=== PATIENT | female | born 1950 | race Caucasian/White ===

== ENCOUNTER 2020-10-10 17:52 | Emergency (ER) | payer MEDICARE, SELFPAY ==
--- NOTE | ~2020-10-10 | XR_ITS ---
EXAMINATION: XR chest 2V DATE: 10/10/2020 18:44 INDICATION: Shortness of breath and cough. TECHNIQUE: Frontal and lateral views of the chest were obtained. COMPARISON: None. FINDINGS: There is mild atelectasis in the lower lung zones. No pleural effusion or pneumothorax. The heart size is normal. There is a compression fracture of T12, likely chronic. IMPRESSION: 1. Mild atelectasis in the lower lung zones. Reviewed, dictated and finalized at location A. [employer]
[2020-10-10 18:10] VITALS: BP 224/98; PULSE 98; RESP 20; TEMP 36.7; O2SAT 100
--- NOTE | 2020-10-10 18:38 | ED.GENADULT ---
HPI - General Adult General Chief complaint: Upper Respiratory Infection Stated complaint: SOB sore throat and some cough Time Seen by Provider: 10/10/20 18:39 Source: patient and RN notes reviewed Mode of arrival: ambulatory Limitations: no limitations History of Present Illness HPI narrative: 69-year-old female presents with complaints of upper respiratory infection symptoms, scratchy throat, cough, and intermittent dyspnea with activity for the past 2 days. Amrita reports she was outside shoveling snow on Saturday and symptoms started later that day. No treatment. Dry cough without chest congestion. Rhinorrhea and nasal congestion. Exacerbating factors consist of activity. No high fevers. Intermittent chills and sweats. No nausea, vomiting, and abdominal pain. Denies chest pain, coughing up blood, jaw pain, dental pain, facial pain, foreign body sensation, and rash. Denies numbness or tingling in the extremities, dizziness, headache, blurred vision, or other vision disturbance. Denies rapid heart beat, lightheadedness, and alter mental status. The patient reports she have not been diagnosed with COVID-19. The patient reports she is not waiting for the results of a COVID-19 lab test. The patient reports she do not have weakness, myalgia, or fatigue. The patient reports she do not have a worsening cough. Denies chest pain. The patient reports she do not have any loss of smell or taste or diarrhea. Denies recent traveling. Denies concerns for COVID-19 or exposures been home with limited outdoor exposure except for essential household needs and return home. At this time, patient is not suspected of having COVID-19. Some parts of this dictation were generated by voice recognition software and may contain typographical and/or grammatical inaccuracies. Related Data Home Medications Medication Instructions Recorded Confirmed sertraline 50 mg PO DAILY 10/10/20 10/10/20 Allergies Allergy/AdvReac Type Severity Reaction Status Date / Time Sulfa (Sulfonamide AdvReac Mild Abdominal Verified 10/10/20 18:29 Antibiotics) Pain Review of Systems Review of Systems: Narrative: CONSTITUTIONAL: Denies of fever. Complains of intermittent chills, sweats. EYES: Denies visual changes, redness, discharge. ENT: Complains of rhinorrhea, congestion, scratchy throat. Denies otalgia. CARDIOVASCULAR: Denies chest pain, palpitations, edema. RESPIRATORY: Denies wheezing. Complains of intermittent dyspnea, cough. GASTROINTESTINAL: Denies abdominal pain, nausea, vomiting, diarrhea. GENITOURINARY: Denies dysuria, hematuria, abnormal discharge. SKIN: Denies rash or itching. MUSCULOSKELETAL: Denies acute back pain, joint pain, myalgia. NEUROLOGIC: Denies numbness or focal weakness. PSYCHIATRIC: Denies anxiety or depression. All systems reviewed & are unremarkable except as noted in HPI and below. [facility] Past Medical History Medical History (Updated 10/11/20 @ 12:54 by HENRY Jama) Bilateral swelling of feet and ankles Depression Morbid obesity Swelling of lower leg Surgical History Surgical History (Updated 10/10/20 @ 18:44 by HENRY Jama) History of hysterectomy Family History Family History (Updated 10/10/20 @ 19:45 by HENRY Jama) Father Lung cancer Mother Breast cancer Social History Social History (Updated 10/10/20 @ 19:46 by HENRY Jama) Smoking status: Former smoker Tobacco type: cigarettes Second hand tobacco smoke exposure: No Alcohol intake: never Substance use: never Living arrangements: alone Occupation/Education: retired Gender identity (if verbalized by the patient): Female Sexual Orientation (if Verbalized by the Patient): Straight or Heterosexual Comments At time of signature, agree with nurse past medical, surgical, social, and family history. There is relevant patient's past medical history pertinent to t
[2020-10-10 18:45] VITALS: BP 220/118
[2020-10-10] MEDS: cloNIDine HCL 0.1 MG TABLET PO (19:05)
[2020-10-10 19:25] VITALS: BP 219/92; PULSE 79
== END 2020-10-10 19:40 | disposition home or self-care (01) ==
PROVIDERS: Emergency Provider Nurse Practitioner Family; PCP Nurse Practitioner Family
DX: J98.11 Atelectasis (principal); R06.02 Shortness of breath; I10 Essential (primary) hypertension; Z20.822 Contact with and (suspected) exposure to COVID-19; Z87.891 Personal history of nicotine dependence; F32.9 Major depressive disorder, single episode, unspecified; E66.01 Morbid (severe) obesity due to excess calories; Z68.37 Body mass index [BMI] 37.0-37.9, adult
CPT/HCPCS: 71046; 87081; 87426; 87804; 87880; 99213; A9270; C9803; G0463

== ENCOUNTER 2020-10-15 10:39 | Emergency (ER) | payer MEDICARE, SELFPAY ==
[2020-10-15 10:50] VITALS: BP 161/83; PULSE 88; RESP 20; TEMP 36.7; O2SAT 99
--- NOTE | 2020-10-15 11:21 | ED.URI ---
HPI - URI/Sore Throat General Chief Complaint: Upper Respiratory Infection Stated Complaint: Sore Throat/Difficulty Swallowing Time Seen by Provider: 10/15/20 11:09 Source: patient, RN notes reviewed and old records reviewed Mode of arrival: ambulatory Limitations: no limitations History of Present Illness HPI Narrative: Patient presents today complaining of copious thick postnasal drainage and scratchiness in her throat. She was initially seen at [facility] on 10/10/20 with URI symptoms, where her Covid 19, strep test were negative and her chest x-ray showed atelectasis. She was prescribed some Augmentin, benzonatate, albuterol for her symptoms and has been taking these as directed. States at times when she clears her throat, a ball of thick mucus chokes her and she has to immediately cough it up to clear it out of her airway. This is causing scratchiness and soreness to her throat and she would like something that will take care of it today. Related Data Home Medications Medication Instructions Recorded Confirmed pravastatin 40 mg PO DAILY 10/15/20 10/15/20 Allergies Allergy/AdvReac Type Severity Reaction Status Date / Time Sulfa (Sulfonamide AdvReac Mild Abdominal Verified 10/10/20 18:29 Antibiotics) Pain Review of Systems Review of Systems: Narrative: CONSTITUTIONAL: Denies body aches, fever, chills, or sweats. EYES: Denies visual changes, redness, or discharge. ENT: Denies rhinorrhea, congestion, sore throat, or otalgia. + Postnasal drip, throat scratchiness CARDIOVASCULAR: Denies chest pain, palpitations, or edema. RESPIRATORY: Denies cough or dyspnea. GASTROINTESTINAL: Denies abdominal pain, nausea, vomiting, or diarrhea. GENITOURINARY: Denies dysuria or hematuria. SKIN: Denies rash, itching, or wounds. MUSCULOSKELETAL: Denies back pain, joint pain, or myalgia. NEUROLOGIC: Denies headache, numbness, tingling, or weakness. PSYCH: Denies depression or anxiety. [facility] Past Medical History Medical History (Updated 10/15/20 @ 11:24 by Vickie Gray, HENRY, ) Bilateral swelling of feet and ankles Depression Morbid obesity Swelling of lower leg Surgical History Surgical History (Updated 10/10/20 @ 18:44 by HENRY Jama) History of hysterectomy Family History Family History (Updated 10/10/20 @ 19:45 by HENRY Jama) Father Lung cancer Mother Breast cancer Social History Social History (Updated 10/10/20 @ 19:46 by HENRY Jama) Smoking status: Former smoker Tobacco type: cigarettes Second hand tobacco smoke exposure: No Alcohol intake: never Substance use: never Gender identity (if verbalized by the patient): Female Comments At time of signature, I have reviewed and agree with nursing past medical, surgical, social and family history unless otherwise noted. Please see nursing chart for further information. There is no relevant family history pertinent to the presenting complaint Exam Narrative: Exam Narrative: GENERAL: Well-appearing, well-nourished, and in no acute distress. HEAD: Normocephalic, atraumatic. EYES: EOMI. No redness or drainage. Conjunctivae normal. ENT: Mucous membranes pink and moist. Nares clear. No rhinorrhea. TMs normal bilaterally. Throat normal. Patient frequently clearing her throat of mucus. Uvula midline. NECK: Normal AROM. Supple. No lymphadenopathy. CHEST: No respiratory distress. Clear to auscultation. HEART: Regular rate and rhythm. No murmur appreciated. Normal peripheral pulses. EXTREMITIES: Normal range of motion. No edema. SKIN: Warm, dry, no rash. Capillary refill normal. Normal skin turgor. NEURO: No focal deficits. Alert and oriented x3. Gait steady. PSYCH: Normal affect. No signs of depression or anxiety. Course Vital Signs Vital signs: Vital Signs Temperature 98.1 F 10/15/20 10:50 Pulse Rate 88 10/15/20 10:50 Respiratory Rate 20 10/15/20 10:50 Blood
== END 2020-10-15 11:25 | disposition home or self-care (01) ==
PROVIDERS: Emergency Provider Nurse Practitioner; PCP Family Medicine
DX: R09.82 Postnasal drip (principal); Z87.891 Personal history of nicotine dependence; E66.01 Morbid (severe) obesity due to excess calories; Z68.42 Body mass index [BMI] 45.0-49.9, adult
CPT/HCPCS: 99211; G0463

== ENCOUNTER 2022-11-01 13:37 | Emergency (ER) | payer MEDICARE, SELFPAY ==
[2022-11-01 13:44] VITALS: BP 176/80; PULSE 73; RESP 20; TEMP 36.8; O2SAT 100
--- NOTE | 2022-11-01 14:11 | ED.SKABFB ---
HPI - Skin/Abscess/Foreign Bdy General Chief complaint: Skin/Abscess/Foreign Body Stated complaint: spot/cyst on back Source: patient and RN notes reviewed History of Present Illness HPI narrative: 71 yo F presents to urgent care with complaints of a bump to her upper back that has been there since before . Pt states the bump has been getting bigger and changing colors recently. Denies any drainage, fevers, chills, or pain to the area. Related Data Home Medications Medication Instructions Recorded Confirmed pravastatin 40 mg tablet 40 mg PO DAILY 10/15/20 10/15/20 Allergies Allergy/AdvReac Type Severity Reaction Status Date / Time Sulfa (Sulfonamide AdvReac Mild Abdominal Verified 10/10/20 18:29 Antibiotics) Pain Review of Systems Review of Systems: CONSTITUTIONAL: Denies fever, chills, or sweats. EYES: Denies visual changes, redness, or discharge. ENT: Denies otalgia and sore throat CARDIOVASCULAR: Denies chest pain, palpitations, or edema. RESPIRATORY: Denies cough or dyspnea. GASTROINTESTINAL: Denies abdominal pain, nausea, vomiting, or diarrhea. GENITOURINARY: Denies dysuria or hematuria. SKIN: red bump to upper back MUSCULOSKELETAL: Denies back pain, joint pain, or myalgia. NEUROLOGIC: Denies headache, numbness, or weakness. [facility] Past Medical History Medical History (Updated 11/01/22 @ 14:22 by Damaris Bashir, GRIZZLYMAN) Bilateral swelling of feet and ankles Depression Morbid obesity Swelling of lower leg Surgical History Surgical History (Updated 10/10/20 @ 18:44 by HENRY Jama) History of hysterectomy Family History Family History (Updated 10/10/20 @ 19:45 by HENRY Jama) Father Lung cancer Mother Breast cancer Social History Social History (Updated 10/10/20 @ 19:46 by HENRY Jama) Smoking status: Former smoker Tobacco type: cigarettes Second hand tobacco smoke exposure: No Alcohol intake: never Substance use: never Living arrangements: alone Occupation/Education: retired Gender identity (if verbalized by the patient): Female Sexual Orientation (if Verbalized by the Patient): Straight or Heterosexual Comments At the time of my signature, I reviewed and agree with the nursing past medical, surgical, social, and family history. There is no relevant family history pertinent to the patient complaint. Exam Narrative: GENERAL: This is a well-nourished, well-developed patient, in no apparent distress. HEAD: normocephalic, atraumatic. EYES: PERRL. Sclera clear/white. Vision is grossly intact. EARS: External ears normal, auditory canals clear and without drainage, TMs normal without perforation. Hearing grossly intact. NOSE: External nose normal with no obvious nasal discharge, nares without redness, no rhinorrhea. THROAT: Mucous membranes moist, posterior pharynx clear. NECK: Neck supple, non-tender without lymphadenopathy, masses or thyromegaly. CARDIOVASCULAR: Regular rate and rhythm without murmurs, gallops, or rubs. RESPIRATORY: Clear to auscultation. Breath sounds equal bilaterally. No wheezes, rales, or rhonchi. GASTROINTESTINAL: Abdomen soft, non-tender, nondistended. Bowel sounds are active. No hepato-splenomegaly, or palpable masses. No guarding. SKIN: 2.5 cm abscess-like area to upper back. Fluctuance noted. no surrounding erythema or tenderness. NEURO: awake, alert, and oriented to person, place and time. There were no obvious focal neurologic abnormalities. EXTREMITIES: No clubbing, cyanosis, or edema. No joint tenderness, effusion, or edema noted. BACK: Nontender without deformity or crepitance. No flank tenderness. Course Course Level of Care: Express Care Visit Vital Signs Vital signs: Vital Signs Temperature 98.3 F 11/01/22 13:44 Pulse Rate 73 11/01/22 13:44 Respiratory Rate 20 11/01/22 13:44 Blood Pressure 176/80 H 11/01/22 13:44 Pulse Oximetry 100 11/01/22 13
== END 2022-11-01 14:46 | disposition home or self-care (01) ==
PROVIDERS: Emergency Provider Nurse Practitioner Family; PCP Internal Medicine
DX: L02.212 Cutaneous abscess of back [any part, except buttock and flank] (principal); Z87.891 Personal history of nicotine dependence; E66.01 Morbid (severe) obesity due to excess calories; Z68.31 Body mass index [BMI] 31.0-31.9, adult
CPT/HCPCS: 10060; 87070; 87205; 99213; G0463

== ENCOUNTER 2023-04-19 13:08 | Emergency (ER) | payer MEDICARE, SELFPAY ==
[2023-04-19 13:18] VITALS: BP 149/67; PULSE 80; RESP 14; TEMP 36.6; O2SAT 98
--- NOTE | 2023-04-19 13:25 | ED.EXTPRO ---
HPI - Extremity Problem General Stated complaint: Left leg swelling/red tint Time Seen by Provider: 04/19/23 13:49 Source: patient and RN notes reviewed Mode of arrival: ambulatory Limitations: no limitations History of Present Illness HPI Narrative: 72-year-old female presents concern for left lower leg erythema, edema, tenderness. She reports symptoms started couple days ago and have gotten worse. Reports tender to touch. She reports worsening pain when she is walking. She denies any your trauma. Denies fever, aches, chills, sweats. Denies shortness of breath MD Complaint: extremity swelling Related Data Home Medications Medication Instructions Recorded Confirmed losartan 100 mg tablet 100 mg PO DAILY 04/19/23 04/19/23 sertraline 50 mg tablet 50 mg PO DAILY 04/19/23 04/19/23 trazodone 50 mg tablet 50 mg PO DAILY 04/19/23 04/19/23 Allergies Allergy/AdvReac Type Severity Reaction Status Date / Time Sulfa (Sulfonamide AdvReac Mild Abdominal Verified 04/19/23 13:29 Antibiotics) Pain Review of Systems Review of Systems: CONSTITUTIONAL: Denies malaise, chills, sweats, or fever. CARDIOVASCULAR: Denies chest pain, palpitations, or edema. RESPIRATORY: Denies cough or dyspnea. SKIN: Denies rash or itching, bruising MUSCULOSKELETAL: Reports left lower leg swelling, warmth, tenderness NEUROLOGIC: Denies numbness, weakness All systems reviewed & are unremarkable except as noted in HPI and below PMFSH Past Medical History Medical History (Updated 04/19/23 @ 14:03 by Ludivina Lennon NP) Bilateral swelling of feet and ankles Depression Morbid obesity Swelling of lower leg Surgical History Surgical History (Updated 10/10/20 @ 18:44 by HENRY Jama) History of hysterectomy Family History Family History (Updated 10/10/20 @ 19:45 by HENRY Jama) Father Lung cancer Mother Breast cancer Social History Social History (Updated 10/10/20 @ 19:46 by HENRY Jama) Smoking status: Former smoker Tobacco type: cigarettes Second hand tobacco smoke exposure: No Alcohol intake: never Substance use: never Living arrangements: alone Occupation/Education: retired Gender identity (if verbalized by the patient): Female Sexual Orientation (if Verbalized by the Patient): Straight or Heterosexual Comments At time of signature, agree with nursing past medical, surgical, social and family history. There is no relevant family history pertinent to the presenting complaint Exam Narrative: GENERAL: Well-appearing, well-nourished, and in no acute distress. HEAD: Normocephalic, atraumatic. EYES: PERRLA, conjunctivae clear ENT: Mucous membranes moist. NECK: Supple. No lymphadenopathy CHEST: Clear to auscultation. No respiratory distress. HEART: Regular rate and rhythm. SKIN: Warm, dry. MUSC: Nonpitting edema noted to left lower leg and ankle, erythema, warmth, tenderness NEURO: Alert and oriented x3. PSYCH: Normal mood and affect Course Course Emergency Course: Patient is aware of, understands and agrees to be transferred to the emergency room. Patient agrees to proceed directly to the emergency department. Portions of this record may have been created with voice recognition software Level of Care: Express Care Visit Vital Signs Vital signs: Vital Signs Temperature 98 F 04/19/23 13:18 Pulse Rate 80 04/19/23 13:18 Respiratory Rate 14 04/19/23 13:18 Blood Pressure 149/67 H 04/19/23 13:18 Pulse Oximetry 98 04/19/23 13:18 Oxygen Delivery Room Air 04/19/23 13:18 Temperature 98 F 04/19/23 13:18 Pulse Rate 80 04/19/23 13:18 Respiratory Rate 14 04/19/23 13:18 Blood Pressure 149/67 H 04/19/23 13:18 Pulse Oximetry 98 04/19/23 13:18 Oxygen Delivery Room Air 04/19/23 13:18 Reviewed. Transfer Transfered to: [facility]) Transportation: Other (Private vehicle) Transfer rationale:
== END 2023-04-19 14:00 | disposition short-term general hospital (02) ==
PROVIDERS: Emergency Provider Nurse Practitioner; PCP Internal Medicine
DX: R60.0 Localized edema (principal); Z87.891 Personal history of nicotine dependence; E66.01 Morbid (severe) obesity due to excess calories; Z68.36 Body mass index [BMI] 36.0-36.9, adult; F32.A Depression, unspecified
CPT/HCPCS: 99212; G0463

== ENCOUNTER 2023-09-23 13:14 | Emergency (ER) | payer MEDICARE, SELFPAY ==
--- NOTE | ~2023-09-23 | XR_ITS ---
EXAMINATION: XR foot LT min 3V DATE: 09/23/2023 13:54 INDICATION: Left great toe injury. Left foot pain. TECHNIQUE: 4 views of left foot were obtained. COMPARISON: None. FINDINGS: There is moderate hallux valgus. No fracture. There is mild osteoarthritis of first metatar sophalangeal joint and some of the interphalangeal joints and midfoot joints. There is an enthesophyt e at the plantar aspect of calcaneal tuberosity. There is dorsal foot soft tissue swelling. IMPRESSION: 1. Polyarticular osteoarthritis. 2. Moderate hallux valgus. Reviewed, dictated and finalized at location E. GE PIPEMAN
[2023-09-23 13:36] VITALS: BP 183/71; PULSE 65; RESP 16; TEMP 37.1; O2SAT 99
--- NOTE | 2023-09-23 13:55 | ED.LOWEXIN ---
HPI - Extremity Injury (Lower) General Chief Complaint: Extremity Injury, Lower Stated Complaint: Left foot injury Source: patient, RN notes reviewed and old records reviewed Mode of arrival: ambulatory Limitations: no limitations History of Present Illness HPI Narrative: 72-year-old female presents to [facility] with complaint of left foot swelling and bruising that started after hitting foot under coffee table. Patient states is worried because swelling and bruising. Patient states pain is not too bad MD complaint: foot injury Related Data Home Medications Medication Instructions Recorded Confirmed sertraline 50 mg tablet 50 mg PO DAILY 04/19/23 04/19/23 Allergies Allergy/AdvReac Type Severity Reaction Status Date / Time Sulfa (Sulfonamide AdvReac Mild Abdominal Verified 04/19/23 13:29 Antibiotics) Pain Review of Systems Constitutional: Constitutional: Reports no additional constitutional complaints, Denies body ache(s), Denies chills, Denies fatigue, Denies fever(s) and Denies headache(s) Eyes: Eyes: Reports no additional eye complaints and Denies blurry vision ENT: Reports system reviewed and no additional complaints, except as documented, Denies vertigo, Denies dizziness, Denies ear discharge, Denies otalgia, Denies facial pain, Denies headache(s), Denies nasal congestion, Denies nasal discharge, Denies sinus pain, Denies sinus pressure and Denies sore throat Cardiovascular: Cardiovascular: Reports no additional cardiovascular complaints, Denies chest pain, Denies chest pain at rest, Denies rapid heart rate and Denies dyspnea Respiratory: Respiratory: Reports no additional respiratory complaints, Denies chest congestion, Denies cough, Denies pain on inspiration, Denies pain with cough and Denies dyspnea Gastrointestinal: Gastrointestinal: Denies abdominal pain, Denies diarrhea, Denies nausea and Denies vomiting Musculoskeletal: Comments: left foot swelling and bruising Integumentary/Breasts: Skin/Breast: Reports swelling and Denies rash Neurologic: Reports system reviewed and no additional complaints, except as documented, Denies vertigo, Denies dizziness and Denies headache(s) Endocrine: Endocrine: Denies fatigue PMFSH Past Medical History Medical History Bilateral swelling of feet and ankles Depression Morbid obesity Swelling of lower leg Surgical History Surgical History History of hysterectomy Family History Family History Father Lung cancer Mother Breast cancer Social History Social History Smoking status: Former smoker Tobacco type: cigarettes Second hand tobacco smoke exposure: No Alcohol intake: never Substance use: never Living arrangements: alone Occupation/Education: retired Gender identity (if verbalized by the patient): Female Sexual Orientation (if Verbalized by the Patient): Straight or Heterosexual Comments At the time of my signature, I reviewed and agree with the nursing past medical, surgical, social, and family history. There is no relevant family history pertinent to the patient complaint. Exam Const: General: cooperative, healthy appearing, no acute distress and well nourished Nutritional Appearance: well nourished Orientation/consciousness: patient oriented x3 Limitations: no limitations HENMT: Head: normal to inspection and normocephalic Ears: external ears normal, TM's normal bilaterally, mastoids normal and Abnormal EAC present Face/Nose/Sinus: normal facial exam Face and sinus: normal facial exam Mouth: Yes Normal oral and palatal mucosa present, Yes oropharynx normal and Yes moist mucous membranes Throat: tonsils normal, uvula midline and no uvular edema Eyes: General: appearance
== END 2023-09-23 14:00 | disposition home or self-care (01) ==
PROVIDERS: Emergency Provider Registered Nurse
DX: S90.32XA Contusion of left foot, initial encounter (principal); W22.03XA Walked into furniture, initial encounter; F32.9 Major depressive disorder, single episode, unspecified; E66.01 Morbid (severe) obesity due to excess calories; Z87.891 Personal history of nicotine dependence
CPT/HCPCS: 73630; 99213; G0463

== ENCOUNTER 2024-01-23 14:37 | Emergency (ER) | payer MEDICARE, SELFPAY ==
[2024-01-23 14:58] VITALS: BP 173/86; PULSE 89; RESP 16; TEMP 37; O2SAT 99
--- NOTE | 2024-01-23 15:06 | ED.SKABFB ---
HPI - Skin/Abscess/Foreign Bdy General Chief complaint: Skin/Abscess/Foreign Body Stated complaint: knot of back Time Seen by Provider: 01/23/24 15:06 Source: patient Mode of arrival: ambulatory Limitations: no limitations History of Present Illness HPI narrative: 73-year-old female presented for complaint of a knot on my back getting bigger over the last 2 months. Denies pain or drainage, to the site. no treatment prior to arrival. Related Data Allergies Allergy/AdvReac Type Severity Reaction Status Date / Time Sulfa (Sulfonamide AdvReac Mild Abdominal Verified 04/19/23 13:29 Antibiotics) Pain Review of Systems Review of Systems: CONSTITUTIONAL: Denies body aches, fever, chills, or sweats. CARDIOVASCULAR: Denies chest pain, palpitations, or edema. RESPIRATORY: Denies cough or dyspnea. GASTROINTESTINAL: Denies abdominal pain, nausea, vomiting, or diarrhea. SKIN: reports knot on back MUSCULOSKELETAL: Denies back pain, joint pain, or myalgia. NEUROLOGIC: Denies headache, numbness, tingling, or weakness. [facility] Past Medical History Medical History Bilateral swelling of feet and ankles Depression Morbid obesity Swelling of lower leg Surgical History Surgical History History of hysterectomy Family History Family History Father Lung cancer Mother Breast cancer Social History Social History Smoking status: Former smoker Tobacco type: cigarettes Second hand tobacco smoke exposure: No Alcohol intake: never Substance use: never Living arrangements: alone Occupation/Education: retired Gender identity (if verbalized by the patient): Female Sexual Orientation (if Verbalized by the Patient): Straight or Heterosexual Comments At time of signature, I have reviewed and agree with nursing past medical, surgical, social and family history unless otherwise noted. Please see nursing chart for further information. There is no relevant family history pertinent to the presenting complaint Exam Narrative: GENERAL: Well-appearing ENT: Mucous membranes moist. Oropharynx without edema, erythema or lesions. CHEST: Clear to auscultation. HEART: Regular rate and rhythm. SKIN: Warm, dry. mid upper back with 3.5x3.5cm diameter raised fluctuant cyst, mild erythema; no surrounding induration or tenderness with palpation. EXT: Bilateral lower ext edema 3+ No discoloration. NEURO: Alert and oriented x3. Course Course Emergency Course: Patient is aware of diagnosis, understands and agrees to treatment plan. Anticipatory guidance given. Patient agrees to follow-up as directed and is aware of reasons to seek care at the emergency department. Portions of this record may have been created with voice recognition software Level of Care: Express Care Visit Vital Signs Vital signs: Vital Signs Temperature 98.6 F 01/23/24 14:58 Pulse Rate 89 01/23/24 14:58 Respiratory Rate 16 01/23/24 14:58 Blood Pressure 173/86 H 01/23/24 14:58 Pulse Oximetry 99 01/23/24 14:58 Oxygen Delivery Room Air 01/23/24 14:58 Temperature 98.6 F 01/23/24 14:58 Pulse Rate 89 01/23/24 14:58 Respiratory Rate 16 01/23/24 14:58 Blood Pressure 173/86 H 01/23/24 14:58 Pulse Oximetry 99 01/23/24 14:58 Oxygen Delivery Room Air 01/23/24 14:58 Reviewed Procedures Abscess I/D back: Local Anesthetic: lidocaine 1% Amount of anesthesia used (mL): 2 Technique: incised with #11 blade and probed loculations Irrigation: Yes (30mL) Packing used?: none I&D Results: Pus and Blood Abcess I&D Additional Comments: The procedure and its alternatives were reviewed with patient. Risks were reviewed with patient
== END 2024-01-23 15:44 | disposition home or self-care (01) ==
PROVIDERS: Emergency Provider Nurse Practitioner Family; PCP Internal Medicine
DX: L02.212 Cutaneous abscess of back [any part, except buttock and flank] (principal); Z87.891 Personal history of nicotine dependence; E66.01 Morbid (severe) obesity due to excess calories; Z68.34 Body mass index [BMI] 34.0-34.9, adult
CPT/HCPCS: 10060; 99213; G0463